=== PATIENT | male | born 1995 | race Caucasian/White ===

== ENCOUNTER 2024-04-28 05:12 | Emergency (ER) | payer BC, SELFPAY ==
[2024-04-28 05:13] VITALS: BMI 25.4
[2024-04-28 05:23] VITALS: BP 118/79
[2024-04-28 06:22] VITALS: BP 128/80
[2024-04-28 06:49] LABS: Hematocrit 44.8 % (39.0-52.0); Hemoglobin 15.7 g/dL (13.0-18.0); Mean Corpuscular Hgb 29.6 pg (27.0-31.0); Mean Corpuscular Volume 84.5 fL (80.0-94.0); Red Cell Dist. Width 12.1 % (11.5-14.5); White Blood Cell Count 6.3 10^3/uL (4.8-10.8)
[2024-04-28 06:51] LABS: % Basophils 0.8 % (0-2); % Eosinophils 2.4 % (0-6); % Immature Granulocytes 0.5 % (0-0.5); % Lymphocytes 24.7 % (20.5-51.1); % Monocytes 5.7 % (1.7-9.3); % Neutrophils 65.9 % (42.2-75.2); Absolute Basophils 0.1 10^3/uL (0-0.2); Absolute Eosinophils 0.2 10^3/uL (0-0.7); Absolute Lymphocytes 1.6 10^3/uL (1.2-3.4); Absolute Monocytes 0.4 10^3/uL (0.1-0.6); Absolute Neutrophils 4.2 10^3/uL (1.4-6.5); Nucleated Red Blood Cells % 0 % (-)
[2024-04-28 07:00] VITALS: BP 130/83
--- NOTE | 2024-04-28 07:03 | ED.GENMED ---
History of Present Illness
General
Chief Complaint: Chest Pain
Source: patient and significant other
Exam Limitations: none
Time Seen by Provider: 04/28/24 06:51
Nursing documentation reviewed up to this point in time: agreed with
History of Present Illness
History of Present Illness:
28-year-old male with no significant chronic medical issues presents to the emergency room for evaluation of 'swelling' in the left chest wall. Patient reports that symptoms started 2 days ago and he feels they have been worsening. He reports a
sensation of fullness and soreness in the left chest wall/pectoral region radiates towards the axilla. No clear triggering relieving factors. He denies any associated trauma�he does note that he goes to the gym to workout but his last chest
workout was about a week ago and he did not have any unusual soreness or injuries. He has not noticed any skin changes/redness. He did report some mild associated nausea and lightheadedness today which finally prompted ED visit. He denies taking
any medications aside from a multivitamin�no other supplements or any other chronic meds reported.
Review of Systems
Review of Systems
All Other Systems: ROS reviewed and negative except as documented in HPI and ROS
Constitutional: Denies fever or chills
Respiratory: Denies cough or trouble breathing
Cardiac: Reports chest pain (Fullness and soreness); Denies palpitations
ABD/GI: Reports nausea; Denies abdominal pain
: Denies flank pain
Musculoskeletal: Denies edema, neck pain or back pain
Neurological: Reports dizzy; Denies headache
Phy Exam
Physical Exam
Physical Exam:
General: Awake, alert, oriented x3; no acute distress
Head: Normocephalic, atraumatic
Eyes: Conjunctiva normal, sclera anicteric
Throat: Airway intact, handling secretions
Neck: Trachea midline, no JVD
Lungs: Clear to auscultation bilaterally, no wheezing, rales, rhonchi
Heart: Regular rate and rhythm, no murmurs, gallops, or rubs
Chest wall: Patient has some very mild tenderness of the left pectoral muscle; he does have some abnormal gynecomastia left side more full than right; no rash noted, no warmth/erythema/induration
Abd: Soft, non distended, nontender
Neuro: No gross deficits
Skin: no rash
Extremities: Warm and well-perfused
Scores
Heart Failure Risk
Heart Failure Risk Score: Not Applicable
Heart Score for Chest Pain Patients
STEMI patient?: Not applicable
Withdrawal Assessment of Alcohol
Withdrawal Assessment Completed?: Not applicable
Course
Orders/Labs/Results
Orders:
Orders
04/28/24
Electrocardiogram (*1) Stat
Reason for Study: Chest Pain
Comment: DONE
04/28/24 05:15
EKG [Electrocardiogram (*1)] Urgent
Reason for Study: Chest Pain
EKG- Treatment ONCE
04/28/24 06:26
Complete Blood Count/With Diff Urgent
04/28/24 06:28
CR Chest - 2 Views Urgent
Comment:
Reason For Exam: left chest pain
04/28/24 06:53
EKG- Treatment ONCE
04/28/24 07:04
Comprehensive Metabolic Panel Urgent
Estradiol Urgent
HCG, Beta Quantitative [Beta HCG Quantitative] Urgent
Is this a screen?: No
LH [Luteinizing Hormone] Urgent
TSH Reflex To Free T4 Urgent
Testosterone Free&Total (Male) [S] Urgent
Troponin I Urgent
Abnormal Lab Results
04/28/24
07:04
Carbon Dioxide 31 H mmol/L
(22-30)
BUN 22 H mg/dl
(9-20)
04/28/24 06:26
04/28/24 07:04
Vital Signs
Initial and Last Documented VS:
Initial Vital Signs
Temp Pulse BP Pulse Ox
36.5 C 82 118/79 99
04/28/24 05:23 04/28/24 05:23 04/28/24 05:23 04/28/24 05:23
Last Documented Vital Signs
Temp Pulse Resp BP Pulse Ox
36.5 C 60 23 136/75 98
04/28/24 05:23 04/28/24 09:00 04/28/24 09:00 04/28/24 09:00 04/28/24 08:45
MDM/Problems Addressed
Differential Diagnosis Includes:
Pectoral strain/tear, gynecomastia; lower suspicion for cardiac symptoms given superficial fullness and soreness rather than true chest pain
MDM/Problems Addressed:
28-year-old male presents for evaluation of abnormal swelling/fullness in the left pectoral region and soreness in the area. He has had some associated nausea and had some lightheadedness today as well. He did do a chest workup at the gym last
week but did not have any injury or soreness afterwards and swelling/fullness did not occur until the past day or 2. His vitals are normal. In triage she had lab work sent off including a CBC and a CMP which were unremarkable. He had a troponin
sent off which is pending. He had a chest x-ray reviewed by me shows no acute disease. EKG shows normal sinus rhythm. Will add labs to workup abnormal gynecomastia although pectoral strain a consideration somewhat less likely given reported
history. He does not have a primary doctor pending initial evaluation here in the emergency room will need to establish care with PCP�message sent to our PCP request line.
Patient's troponin is undetectable and low suspicion that symptoms represent a cardiac pathology. Add on labs including thyroid studies, LH/hCG/E2 all unremarkable. Unclear etiology to his symptoms at this point low suspicion for emergent
pathology. It could be that he strained his pectoral muscle and has some swelling from that where he has some gynecomastia of unclear etiology. Stable for discharge at this point to follow-up with outpatient primary physician�eriberto Pastrana did send a
message to her PCP requesting line. He feels comfortable with this plan. All questions answered.
*Critical Care Note
Total Time (30-74mins, 75-104mins- exclusive of procedures): Not Applicable
ED Attending Note
-
Portions of this chart may have been created with voice recognition software.� Occasional wrong word or��sound alike� substitutions may have occurred due to the inherent limitations of voice recognition software.
Discharge Plan
Departure
Patient Disposition: Home (Routine Discharge)
Date of Disposition: 04/28/24
Time of Disposition: 09:01
Patient with high blood pressure during this ER visit?: No
Discharge Problem:
Gynecomastia, Chest wall pain
Instructions: Gynecomastia (male breast development), Chest pain
Referrals:
NONE,* [Family Provider] -
Activity Restrictions/Additional Instructions:
Thank you for visiting the Emergency Department at [facility].
1. Please schedule a follow up appointment as directed. Call first thing tomorrow morning to make an appointment.
2. If indicated, please take your medications as instructed and indicated on discharge paperwork.
3. If any of your symptoms do not improve, or persist, or become more severe within 6-12 hours, please return to the emergency department for further care.
4. Please return to the emergency department if you develop a headache, neck pain/stiffness, fever greater than 100.4F, chest pain, shortness of breath, persistent nausea, vomiting, slurred speech, difficulty walking, numbness/tingling, weakness,
signs of infection or any other symptoms that are worrisome to you.
Please call [phone] if you have any questions.
Interventions
Interventions:
*Risk Screen - Suicide Last Done: 04/28/24 05:27
*General Assessment Last Done: 04/28/24 05:27
*Neglect/Abuse Screening Last Done: 04/28/24 05:27
ED- Fall Risk Assessment Last Done: 04/28/24 05:27
*ED COVID-19 Vaccine History Last Done: 04/28/24 05:27
*Nursing Disposition Last Done: 04/28/24 09:31
ED- Cardiac Assessment Last Done: 04/28/24 07:50
Discharge Date and Time
Discharge Date/Time: 04/28/24 09:32
Print Language: ARMENIAN
[2024-04-28 07:30] LABS: ALT (SGPT) 26 U/L (0-50); AST (SGOT) 29 U/L (17-59); Albumin 4.7 g/dl (3.5-5.0); Alkaline Phosphatase 59 U/L (38-126); Blood Urea Nitrogen 22 mg/dl (9-20); Calcium 9.9 mg/dl (8.4-10.2); Carbon Dioxide 31 mmol/L (22-30); Chloride 101 mmol/L (98-107); Estimated Creatinine Clearance > 125 ml/min; Glucose 99 mg/dl (70-99); Potassium 5.1 mmol/L (3.5-5.1); Sodium 137 mmol/L (135-145); Total Bilirubin 0.5 mg/dl (0.2-1.3); Total Protein 7.1 g/dl (6.3-8.2); eGFR > 60.00
[2024-04-28 07:32] LABS: Mean Platelet Volume 9.8 fL (7.4-10.4); Platelet Count 143 10^3/uL (130-400)
[2024-04-28 07:41] LABS: Troponin I < 0.012 ng/ml
[2024-04-28 07:58] LABS: Beta HCG Quantitative < 2.39 mIU/ml; Luteinizing Hormone 2.21 mIU/ml (1.24-7.80)
[2024-04-28 08:00] VITALS: BP 129/74
[2024-04-28 08:12] LABS: TSH Reflex To Free T4 0.81 uIU/ml (0.47-4.68)
[2024-04-28 08:14] LABS: Estradiol 32.3 pg/ml (5.4-66)
[2024-04-28 09:00] VITALS: BP 136/75
[2024-04-29 23:34] LABS: % Free Testosterone 1.7 % (1.6-2.9); Free Testosterone 92 pg/mL (47-244); Sex Hormone Binding Globulin 39 nmol/L (17-56); Total Testosterone 528 ng/dL (300-1080)
== END 2024-04-28 09:32 | disposition home or self-care (01) ==
LOC: EMR 05:12
PROVIDERS: EMERGENCY PHYSICIAN Emergency Medicine
DX: N62 Hypertrophy of breast (principal); R07.89 Other chest pain
CPT/HCPCS: 99283; 71046; 80053; 82670; 83002; 84270; 84402; 84403; 84443; 84484; 84702; 85025; 93005